=== PATIENT | female | born 2000 | race Caucasian/White ===

== ENCOUNTER 2018-06-06 18:59 | Emergency (ER) | payer OTHER, MEDICAID, SELFPAY ==
--- NOTE | 2018-06-06 19:18 | DI.RAD.S_ITS ---
PROCEDURE: XR ANKLE RT MIN 3V INDICATIONS: injury TECHNIQUE: 3 views of the ankle were acquired. COMPARISON: [facility], CR, XR ANKLE MIN 3VW WT BEARING RT, 05/16/2016, 9:01. FINDINGS: Bones: No fractures or dislocations. Ankle mortise is normally aligned. No suspicious bony lesions. Soft tissues: No tibiotalar joint effusion. Achilles tendon appears normal. IMPRESSION: No visualized acute fracture or dislocation. However, if clinical concern and/or pain persist, short interval imaging followup in 7-10 days is recommended, as occult injury cannot be definitively excluded. Dictated by: Jade Dumont M.D. on 06/06/2018 at 20:23 Approved by: Jade Dumont M.D. on 06/06/2018 at 20:24
[2018-06-06 19:19] VITALS: BP 116/61; PULSE 70; RESP 18; TEMP 37.1; O2SAT 100; BMI 24.3
--- NOTE | 2018-06-06 22:06 | ED.LOWEXIN ---
HPI - Extremity Injury (Lower) General Chief Complaint: Extremity Injury, Lower Stated Complaint: RIGHT ANKLE INJURY Time Seen by Provider: 06/06/18 21:42 Source: patient and family Mode of arrival: ambulatory Limitations: no limitations History of Present Illness HPI Narrative: Patient complains of right ankle pain after stepping in a hole in a friend's yd and been a backwards. She has pain with ambulation and improvement with rest. She denies other injury such as bernard bone or knee pain. MD complaint: ankle injury Onset (ago): hour(s) Type of Injury: inversion Place: street/outdoors Severity: moderate Relieving factors: immobilization Exacerbating factors: movement Associated symptoms: swelling Other symptoms: none Related Data Home Medications Medication Instructions Recorded Confirmed levothyroxine 137 mcg PO DAILY 06/06/18 06/06/18 Review of Systems Review of Systems All systems reviewed & are unremarkable except as noted in HPI and below Constitutional Denies chills, Denies fever(s), Denies lethargy and Denies weakness Eyes Denies change in vision, Denies eye discharge, Denies irritation and Denies loss of vision ENT Ears, Nose, Mouth, and Throat: Denies change in voice, Denies neck pain and Denies sore throat Cardiovascular Denies chest pain, Denies irregular heart rhythm, Denies lightheadedness, Denies palpitations, Denies dyspnea, Denies dyspnea on exertion and Denies orthopnea Respiratory Denies cough, Denies dyspnea, Denies dyspnea on exertion and Denies wheezing Gastrointestinal Gastrointestinal: Denies abdominal pain, Denies change in bowel habits, Denies diarrhea, Denies nausea and Denies vomiting Genitourinary Denies hematuria, Denies flank pain, Denies urinary incontinence and Denies urinary urgency Musculoskeletal Reports joint swelling, Reports limited range of motion and Denies neck pain Integumentary/Breasts Denies pruritus, Denies erythema, Denies rash and Denies wounds Neurologic Denies confusion, Denies loss of vision and Denies weakness Psychiatric Denies anxiety, Denies confusion, Denies depression, Denies homicidal ideation and Denies suicidal ideation Endocrine Denies palpitations Hematologic/Lymphatic Denies easy bruising Allergic/Immunologic Denies wheezing PFSH Medical History Thyroid cancer (Acute) Exam Narrative Exam Narrative: GEN: AOx3 and in mild distress EYES: Pupils are equal, round, and reactive to light and accommodation. Extraoccular muscles are intact bilaterally. There is no subconjunctival hemorrhage or exudate. CHEST: Lungs are clear to auscultation bilaterally and free of wheezes, rales, or rhonchi. Heart rate is regular rhythm, there are no murmurs, clicks, rubs, or gallops. There is no chest wall tenderness. ABD: Abdomen is soft and nontender. There is no guarding or rebound. Bowel sounds are normal in all 4 quadrants. There is no mass or organomegaly. EXT: Swelling and tenderness along anterior right ankle. Closed, isolated and neuro intact SKIN: Warm, pink, and dry. No erythema or rash Initial Vital Signs Initial Vital Signs: Vital Signs Temperature 98.8 F 06/06/18 19:19 Pulse Rate 70 06/06/18 19:19 Respiratory Rate 18 06/06/18 19:19 Blood Pressure 116/61 06/06/18 19:19 Pulse Oximetry 100 06/06/18 19:19 Course Orders Ordered: ED Orders 06/06/18 19:18 XR ankle RT min 3V Stat Vital Signs - 8 hr 06/06/18 22:35 Temperature 98.0 F Pulse Rate 68 Respiratory Rate 18 Blood Pressure [Left Arm] 107/64 Pulse Oximetry 100 MDM - Extremity Injury (Lower) Differential Diagnosis Likely ankle sprain and strain Imaging Data Ankle Xray: Radiologist's impression: PROCEDURE: XR ANKLE RT MIN 3V INDICATIONS: injury TECHNIQUE: 3 views of the ankle were acquired. COMPARISON: [facility], CR, XR ANKLE MIN 3VW WT BEARING RT, 05/16/2016, 9:01. FINDINGS: Bones: No fractures or dislocations. Ankle mortise is normally aligned. No suspicious bony lesions. Soft tissues: No tibiotalar joint effusion. Achilles tendon appears normal. IMPRESSION: No visualized acute fracture or dislocation. However, if clinical concern and/or pain persist, short interval imaging followup in 7-10 days is recommended, as occult injury cannot be definitively excluded. Dictated by: Jade Dumont M.D. on 06/06/2018 at 20:23 Approved by: Jade Dumont M.D. on 06/06/2018 at 20:24 Discharge Plan Departure Patient Disposition: Home, Self-Care Clinical Impression: Ankle sprain and strain Discharge Date/Time: 06/06/18 23:02 Interventions: ED Discharge Assessment Last Done: 06/06/18 23:01 Instructions: Ankle Sprain Activity Restrictions/Additional Instructions: *You have been diagnosed with [ right ankle sprain ] *What to do: *Take medications as directed, such as Tylenol and Motrin *Follow up with your primary care provider in 2-3 days, call for an appointment. Let them know you were seen in the Emergency Department and that we ask that you be seen in follow up *Return to ER if you should have any new, worsening or concerning symptoms, such as [ increasing pain, swelling or discoloration] Prescriptions: No Action levothyroxine 137 mcg tablet 137 mcg PO DAILY RF: 0
[2018-06-06 22:35] VITALS: BP 107/64; PULSE 68; RESP 18; TEMP 36.7; O2SAT 100
== END 2018-06-06 23:02 | disposition home or self-care (01) ==
PROVIDERS: Emergency Provider Emergency Medicine
DX: S93.401A Sprain of unspecified ligament of right ankle, initial encounter (principal); W17.2XXA Fall into hole, initial encounter
CPT/HCPCS: 73610; 99282; 99283